=== PATIENT | male | born 1995 | race African-American/Black ===

== ENCOUNTER 2018-12-02 05:56 | Emergency (ER) | payer OTHER ==
[2018-12-02] MEDS ORDERED: ONDANSETRON HCL INJ/PF 4 MG/2 ML SDV IV ONE (06:35)
[2018-12-02] MEDS ORDERED: NORMAL SALINE 1000 ML 1,000 ML IV ONE (06:35)
--- NOTE | 2018-12-02 06:37 | ER Document Report ---
ED General - General Chief Complaint: Vomiting/Diarrhea Stated Complaint: DIARRHEA Time Seen by Provider: 12/02/18 06:32 TRAVEL OUTSIDE OF THE [place] IN LAST 30 DAYS: No - HPI Patient complains to provider of: n/v/d Notes: Normally healthy 23-year-old male [employer] presents with approximately 10 hours of nausea vomiting diarrhea. Patient endorses 3-4 episodes of emesis and equal n umber of loose stool. Patient denies fever, chills, shortness of breath, syncope, fever. Past Medical History - Social History Smoking Status: Unknown if Ever Smoked Family History: None Review of Systems - Review of Systems Notes: REVIEW OF SYSTEMS: CONSTITUTIONAL: -fevers, -chills EENT: -eye pain, -difficulty swallowing, -nasal congestion CARDIOVASCULAR: -chest pain, -syncope. RESPIRATORY: -cough, -SOB GASTROINTESTINAL: -abdominal pain, positive for nausea vomiting and diarrhea GENITOURINARY: -dysuria, -hematuria MUSCULOSKELETAL: -back pain, -neck pain SKIN: -rash or skin lesions. HEMATOLOGIC: -easy bruising or bleeding. LYMPHATIC: -swollen, enlarged glands. NEUROLOGICAL: -altered mental status or loss of consciousness, -headache, - neurologic symptoms PSYCHIATRIC: -anxiety, -depression. ALL OTHER SYSTEMS REVIEWED AND NEGATIVE. Physical Exam - Vital signs Vitals: Temp Pulse Resp BP Pulse Ox 98 F 64 16 120/79 97 12/02/18 06:02 12/02/18 06:02 12/02/18 06:02 12/02/18 06:02 12/02/18 06:02 - Notes Notes: PHYSICAL EXAMINATION: GENERAL: Well-appearing, well-nourished and in no acute distress. HEAD: Atraumatic, normocephalic. EYES: Pupils equal round and reactive to light, extraocular movements intact, sclera anicteric, conjunctiva are normal. ENT: nares patent, oropharynx clear without exudates. Moist mucous membranes. NECK: Normal range of motion, supple without lymphadenopathy LUNGS: Breath sounds clear to auscultation bilaterally and equal. No wheezes rales or rhonchi. HEART: Regular rate and rhythm without murmurs ABDOMEN: Soft, nontender, normoactive bowel sounds. No guarding, no rebound. No masses appreciated. EXTREMITIES: Normal range of motion, no pitting or edema. No cyanosis. NEUROLOGICAL: Cranial nerves grossly intact. Normal speech, normal gait. Normal sensory and motor exams. PSYCH: Normal mood, normal affect. SKIN: Warm, Dry, normal turgor, no rashes or lesions noted. Course - Re-evaluation Re-evalutation: 12/02/18 06:37 They will vital signs within normal limits, patient's medical record reviewed. Gastroenteritis type symptoms nausea vomiting diarrhea very reassuring physical exam. Extensive lab work-up relatively unremarkable. Patient given IV antiemetics and fluid resuscitation. Feeling much improved 12/02/18 07:12 Patient given fluid resuscitation and antiemetics, extensive lab work was relatively unremarkable. No kidney injury. Patient be discharged home with more oral antiemetics follow-up PCP - Vital Signs Vital signs: Temp Pulse Resp BP Pulse Ox 98 F 64 16 120/79 97 12/02/18 06:02 12/02/18 06:02 12/02/18 06:02 12/02/18 06:02 12/02/18 06:02 - Laboratory Result Diagrams: 12/02/18 06:33 12/02/18 06:33 Discharge - Discharge Clinical Impression: Gastroenteritis Condition: Stable Disposition: HOME, SELF-CARE Instructions: Gastroenteritis (adult) (REPLACED BY [facility]) Additional Instructions: Follow-up with your primary care physician Prescriptions: Ondansetron [Zofran Odt 4 mg Tablet] 1 - 2 tab PO Q4H PRN #15 tab.rapdis PRN Reason: For Nausea/Vomiting
[2018-12-02 06:50] LABS: ABSOLUTE EOSINOPHILS # (AUTO) 0.1 10^3/uL (0.0-0.6); ABSOLUTE LYMPHOCYTES (AUTO) 1.8 10^3/uL (0.5-4.7); ABSOLUTE MONOCYTES (AUTO) 0.5 10^3/uL (0.1-1.4); ABSOLUTE NEUT (AUTO) 3.2 10^3/uL (1.7-8.2); BASOPHILS % (AUTO) 0.8 % (0-2); HEMATOCRIT 44.7 % (37.9-51.0); HEMOGLOBIN 14.9 g/dL (13.5-17.0); LYMPHOCYTES % (AUTO) 31.3 % (13-45); MEAN CORPUSCULAR HEMOGLOBIN 29.5 pg (27.0-33.4); MEAN CORPUSCULAR HGB CONC 33.4 g/dL (32.0-36.0); MEAN CORPUSCULAR VOLUME 88 fl (80-97); MONOCYTES % (AUTO) 8.7 % (3-13); PLATELET COUNT 229 10^3/uL (150-450); RED BLOOD COUNT 5.06 10^6/uL (4.35-5.55); RED CELL DISTRIBUTION WIDTH 13.8 % (11.5-14.0); SEGMENTED NEUTROPHILS % (AUTO) 57.2 % (42-78); TOTAL CELLS COUNTED % (AUTO) 100 %; WHITE BLOOD COUNT 5.6 10^3/uL (4.0-10.5)
[2018-12-02 07:06] LABS: ALANINE AMINOTRANSFERASE 35 U/L (21-72); ALBUMIN 4.5 g/dL (3.5-5.0); ALKALINE PHOSPHATASE 73 U/L (38-126); ANION GAP 10 (5-19); ASPARTATE AMINO TRANSFERASE 32 U/L (17-59); BILIRUBIN,DIRECT 0.2 mg/dL (0.0-0.4); BILIRUBIN,TOTAL 0.8 mg/dL (0.2-1.3); BLOOD UREA NITROGEN 10 mg/dL (7-20); CARBON DIOXIDE 29 mmol/L (22-30); CHLORIDE 104 mmol/L (98-107); GLUCOSE 108 mg/dL (75-110); POTASSIUM 3.8 mmol/L (3.6-5.0); SODIUM 143.2 mmol/L (137-145); TOTAL PROTEIN 7.8 g/dL (6.3-8.2)
[2018-12-02 07:51] VITALS: BP 101/57
== END 2018-12-02 07:51 | disposition home or self-care (01) ==
LOC: ER 05:56
DX: K52.9 Noninfective gastroenteritis and colitis, unspecified (principal); R11.2 Nausea with vomiting, unspecified
CPT/HCPCS: 99284; 96361; 96374; 36415; 85025; 80053; J2405; J7030

== ENCOUNTER 2019-09-01 08:41 | Emergency (ER) | payer OTHER ==
[2019-09-01] MEDS ORDERED: ONDANSETRON 4 MG TAB.RAPDIS PO ONE (09:58)
[2019-09-01] MEDS ORDERED: NORMAL SALINE 1000 ML 1,000 ML IV ONE (09:58)
[2019-09-01] MEDS ORDERED: ONDANSETRON HCL INJ/PF 4 MG/2 ML SDV IV ONE ×2 (10:01→12:03)
--- NOTE | 2019-09-01 10:01 | ER Document Report ---
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 Patient denies fever. Reports he went out to eat last night and then he started vomiting after that. Patient reports he had a sandwich of black causey. Reports he is been following a plant-based diet lately. Patient looks uncomfortable left lower quad tender to touch. Denies history of Crohn's, IBS diverticulitis. Has received his influenza vaccine. I have greeted and performed a rapid initial assessment of this patient. A comprehensive ED assessment and evaluation of the patient, analysis of test results and completion of the medical decision making process will be conducted by additional ED providers. TRAVEL OUTSIDE OF THE [place] IN LAST 30 DAYS: No - Related Data Allergies/Adverse Reactions: No Known Allergies Allergy (Verified 09/01/19 09:49) Past Medical History - Social History Chew tobacco use (# tins/day): No Frequency of alcohol use: Occasional Drug Abuse: None Renal/ Medical History: Denies: Hx Peritoneal Dialysis Physical Exam - Vital signs Vitals: Temp Pulse Resp BP Pulse Ox 99.0 F 58 L 18 119/55 L 99 09/01/19 09:05 09/01/19 09:05 09/01/19 09:05 09/01/19 09:05 09/01/19 09:05 Course - Vital Signs Vital signs: Temp Pulse Resp BP Pulse Ox 99.0 F 58 L 18 119/55 L 99 09/01/19 09:05 09/01/19 09:05 09/01/19 09:05 09/01/19 09:05 09/01/19 09:05
[2019-09-01 10:50] LABS: HEMOGLOBIN 16.2 g/dL (13.5-17.0); MEAN CORPUSCULAR HEMOGLOBIN 30.4 pg (27.0-33.4); MEAN CORPUSCULAR HGB CONC 33.7 g/dL (32.0-36.0); MEAN CORPUSCULAR VOLUME 90 fl (80-97); PLATELET COUNT 210 10^3/uL (150-450); RED BLOOD COUNT 5.32 10^6/uL (4.35-5.55); RED CELL DISTRIBUTION WIDTH 14.1 % (11.5-14.0); WHITE BLOOD COUNT 9.3 10^3/uL (4.0-10.5)
[2019-09-01 11:00] LABS: ALBUMIN 5.1 g/dL (3.5-5.0); ALKALINE PHOSPHATASE 82 U/L (38-126); ANION GAP 13 (5-19); ASPARTATE AMINO TRANSFERASE 32 U/L (17-59); BILIRUBIN,DIRECT 0.1 mg/dL (0.0-0.4); BILIRUBIN,TOTAL 2.4 mg/dL (0.2-1.3); BLOOD UREA NITROGEN 10 mg/dL (7-20); CARBON DIOXIDE 30 mmol/L (22-30); CHLORIDE 98 mmol/L (98-107); GLUCOSE 104 mg/dL (75-110); POTASSIUM 4.3 mmol/L (3.6-5.0); TOTAL PROTEIN 8.8 g/dL (6.3-8.2)
[2019-09-01 11:23] LABS: ABSOLUTE LYMPHOCYTES# (MANUAL) 0.6 10^3/uL (0.5-4.7); ABSOLUTE MONOCYTES # (MANUAL) 0.6 10^3/uL (0.1-1.4); BAND NEUTROPHILS % (MANUAL) 3 % (3-5); BASOPHILS % (MANUAL) 0 % (0-2); EOSINOPHILS % (MANUAL) 0 % (0-6); LYMPHOCYTES % (MANUAL) 6 % (13-45); MONOCYTES % (MANUAL) 6 % (3-13); SEGMENTED NEUTROPHILS % (MAN) 85 % (42-78); TOTAL CELLS COUNTED 100
[2019-09-01 11:24] LABS: ANISOCYTOSIS SLIGHT; PLATELET COMMENT ADEQUATE; TOXIC GRANULATION SLIGHT; TOXIC VACUOLATION PRESENT
[2019-09-01 11:34] LABS: APPEARANCE,URINE CLEAR; BILIRUBIN,URINE NEGATIVE (NEGATIVE); COLOR,URINE YELLOW; GLUCOSE, URINE NEGATIVE (NEGATIVE); KETONES,URINE 20 mg/dL (NEGATIVE); LEUKOCYTE ESTERASE,URINE NEGATIVE (NEGATIVE); NITRITE,URINE NEGATIVE (NEGATIVE); PROTEIN,URINE NEGATIVE (NEGATIVE); URINE SPECIFIC GRAVITY 1.029; UROBILINOGEN,URINE NEGATIVE mg/dL (<2.0)
[2019-09-01] MEDS ORDERED: METOCLOPRAMIDE HCL INJ/PF 10 MG/2 ML SDV IV ONE (12:03)
[2019-09-01] MEDS ORDERED: ONDANSETRON ODT 4 MG TAB (6 TAB/ER DISP) PO PRN (12:04)
--- NOTE | 2019-09-01 12:24 | ER Document Report ---
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 Patient states that he went out to eat around 1430 yesterday afternoon and approximately x4 hours later, he began to vomit and continued to do so every x2 hours. Patient states that x20 minutes after his first episode of vomiting, he had diarrhea. Patient notes that his last episode of diarrhea occurred here at arrival and that it was watery. Patient denies fever. TRAVEL OUTSIDE OF THE [place] IN LAST 30 DAYS: No - Related Data Allergies/Adverse Reactions: No Known Allergies Allergy (Verified 09/01/19 09:49) Past Medical History - General Information source: Patient - Social History Smoking Status: Never Smoker Cigarette use (# per day): No Chew tobacco use (# tins/day): No Smoking Education Provided: No Frequency of alcohol use: Occasional Drug Abuse: None Occupation: [employer] [facility] [place] Lives with: Spouse/Significant other Family History: None Patient has suicidal ideation: No Patient has homicidal ideation: No - Medical History Medical History: Negative Past Surgical History: Reports: Hx Oral Surgery - 3rd molar Review of Systems - Review of Systems Constitutional: See HPI. denies: Fever EENT: No symptoms reported Cardiovascular: No symptoms reported Respiratory: No symptoms reported Gastrointestinal: No symptoms reported, Abdominal pain, Diarrhea, Nausea, Vomiting Genitourinary: No symptoms reported Male Genitourinary: No symptoms reported Musculoskeletal: No symptoms reported Skin: No symptoms reported Hematologic/Lymphatic: No symptoms reported Neurological/Psychological: No symptoms reported -: Yes All other systems reviewed and negative Physical Exam - Vital signs Vitals: Temp Pulse Resp BP Pulse Ox 99.0 F 58 L 18 119/55 L 99 09/01/19 09:05 09/01/19 09:05 09/01/19 09:05 09/01/19 09:05 09/01/19 09:05 - General General appearance: Alert - HEENT Head: Normocephalic, Atraumatic Eyes: Normal Pupils: PERRL Mucous membranes: Dry - Respiratory Respiratory status: No respiratory distress Chest status: Nontender Breath sounds: Normal Chest palpation: Normal - Cardiovascular Rhythm: Regular Heart sounds: Normal auscultation Murmur: No - Abdominal Inspection: Normal Distension: No distension Bowel sounds: Hypoactive - Active bowel sounds, a little decreased. Tenderness: Tender - Anterior rectus musculature tenderness with palpation; exquisitely tender when tightening the abdominal muscles with deep palpation. Organomegaly: No organomegaly - Back Back: Normal, Nontender - Extremities General upper extremity: Normal inspection General lower extremity: Normal inspection - Neurological Neuro grossly intact: Yes - Psychological Associated symptoms: Normal affect, Normal mood - Skin Skin Temperature: Warm Skin Moisture: Dry Skin Color: Normal Course - Vital Signs Vital signs: Temp Pulse Resp BP Pulse Ox 98.4 F 48 L 16 114/57 L 100 09/01/19 12:40 09/01/19 12:40 09/01/19 12:40 09/01/19 12:40 09/01/19 12:40 - Laboratory Result Diagrams: 09/01/19 10:18 09/01/19 10:18 Laboratory results interpreted by me: 09/01/19 09/01/19 09/01/19 10:18 10:18 11:14 RDW 14.1 H Seg Neuts % (Manual) 85 H Lymphocytes % (Manual) 6 L Total Bilirubin 2.4 H Total Protein 8.8 H Albumin 5.1 H Urine Ketones 20 H Discharge - Discharge Clinical Impression: Nausea, vomiting and diarrhea Abdominal muscle strain Qualifiers: Encounter type: initial encounter Qualified Code(s): S39.011A - Strain of mu scle, fascia and tendon of abdomen, initial encounter Condition: Stable Disposition: HOME, SELF-CARE Additional Instructions: Gastroenteritis You most likely have gastroenteritis. This is an irritation of the stomach and intestinal tract. It's usually caused by a virus, but can also be caused by bacteria, toxins that cause food poisoning, or excessive alcohol intake. Symptoms may include fever, painful abdominal cramps, nausea, vomiting, and diarrhea. Start with small amounts (two to six ounces) of clear liquids (soft drinks, herb teas, broth, etc). Try to take fluids frequently even if you are vomiting, to prevent dehydration. When liquids are being consumed successfully, advance to small amounts of bland food (mashed potato, toast) for 6 - 12 hours. Gastroenteritis rarely requires medication. It goes away by itself. Use good handwashing so you don't spread germs. Wash underwear in very hot water. If symptoms are severe, talk to the doctor. Call your physician if blood appears in your vomitus or stool, if vomiting lasts longer than 24 hours, if the abdominal pain worsens or becomes localized to one area, or if you develop high fever. Take the Zofran for nausea if needed. Drink sips of cool clear liquids throughout the day and evening today. Take Tylenol and ibuprofen for your abdominal muscle pain. Get plenty of rest. Follow-up with your primary care provider tomorrow for recheck if not feeling better. RETURN TO THE EMERGENCY ROOM IF ANY NEW OR WORSENING SYMPTOMS. Forms: Return to Work Scribe Attestation: 09/01/19 12:05 I personally performed the services described in the documentation, reviewed and edited the documentation which was dictated to the scribe in my presence, and it accurately records my words and actions. I personally performed the services described in the documentation, reviewed and edited the documentation which was dictated to the scribe in my presence, and it accurately records my words and actions.
[2019-09-01 12:40] VITALS: BP 114/57
== END 2019-09-01 12:58 | disposition home or self-care (01) ==
LOC: ER 08:41
DX: R11.2 Nausea with vomiting, unspecified (principal); R19.7 Diarrhea, unspecified; S39.011A Strain of muscle, fascia and tendon of abdomen, initial encounter; X58.XXXA Exposure to other specified factors, initial encounter; R10.9 Unspecified abdominal pain
CPT/HCPCS: 36415; 80053; 81001; 83690; 85025; 96361; 96374; 96375; 96376; 99284; J2405; J2765; J7030